=== PATIENT | female | born 1945 | race Caucasian/White ===

== ENCOUNTER 2025-04-23 10:17 | Outpatient (CLI) | payer OTHER | END 2025-04-23 10:18 | disposition home or self-care (01) | LOC: SCSBT 10:17 | PROVIDERS: ATTEND Family Medicine | DX: Z13.820 Encounter for screening for osteoporosis (principal); Z78.0 Asymptomatic menopausal state; M85.859 Other specified disorders of bone density and structure, unspecified thigh | CPT/HCPCS: 77080 ==